=== PATIENT | male | born 1970 | race Two or more races ===

== ENCOUNTER 2022-12-21 00:03 | Emergency (ER) | payer SELFPAY ==
[~2022-12-21] VITALS: Ht 175.3 cm; Wt 88.0 kg
[2022-12-21 00:03] VITALS: BP 149/81; PULSE 90; RESP 20; O2SAT 96
[2022-12-21 01:07] LABS: Eosinophils # (auto) 0.1 10 ^3/uL (0-0.8); Mean Corpuscular Hgb Conc. 33.8 g/dL (32.0-36.0); Monocytes # (auto) 0.6 10 ^3/uL (0-1.3); Monocytes % (auto) 6.3 % (0.0-12.0); Neutrophils # (auto) 5.1 10 ^3/uL (1.6-8.6); Nucleated Red Blood Cells % 0.1 %
[2022-12-21 01:09] LABS: Basophils # (auto) 0.1 10 ^3/uL (0-0.2); Basophils % (auto) 0.6 % (0.0-2.0); Eosinophils % (auto) 1.1 % (0.0-7.0); Hematocrit 51.9 % (41.0-53.0); Hemoglobin 17.6 g/dL (13.5-17.5); Lymphocytes # (auto) 4.1 10 ^3/uL (0.4-5.4); Lymphocytes % (auto) 40.7 % (10.0-50.0); Mean Corpuscular Hemoglobin 33.1 pg (28.0-32.0); Neutrophils % (auto) 51.3 % (37.0-80.0); Red Cell Distribution Width 15.9 % (11.8-14.3)
[2022-12-21 01:27] LABS: Alanine Aminotransferase 51 U/L (16-61); Albumin 3.8 g/dL (3.4-5.0); Anion Gap 9 (5-15); Aspartate Aminotransferase 54 U/L (15-37); BUN/Creatinine Ratio 12.8 (10.0-20.0); Blood Urea Nitrogen 11 mg/dL (7-18); Calcium 7.7 mg/dL (8.5-10.1); Carbon Dioxide 23 mmol/L (21-32); Chloride 108 mmol/L (98-107); GFR African American 121 mL/min; GFR Non-African American 100 mL/min; Glucose 121 mg/dL (74-106); Magnesium 2.7 mg/dL (1.6-2.6); Potassium 3.7 mmol/L (3.5-5.1); Sodium 140 mmol/L (136-145)
[2022-12-21 01:30] LABS: Alkaline Phosphatase 90 U/L (45-117); Bilirubin, Total 0.2 mg/dL (0.2-1.0)
[2022-12-21 01:52] LABS: Blood Alcohol 368.2 mg/dL (<10)
== END 2022-12-21 01:30 | disposition left against medical advice (07) ==
LOC: ER 00:03
DX: F10.239 Alcohol dependence with withdrawal, unspecified (principal); R53.1 Weakness; Z53.21 Procedure and treatment not carried out due to patient leaving prior to being seen by health care provider; Y90.8 Blood alcohol level of 240 mg/100 ml or more
CPT/HCPCS: 36415; 80053; 80320; 83735; 85025